=== PATIENT | male | born 1970 | race Caucasian/White ===

== ENCOUNTER 2021-03-18 16:55 | Emergency (ER) | payer BC, SELFPAY ==
[2021-03-18 17:54] VITALS: BP 151/79; RESP 16; TEMP 37.1; O2SAT 98
[2021-03-18 20:01] VITALS: BP 148/87; PULSE 92; RESP 16; O2SAT 97
[2021-03-18 20:08] LABS: Basophils Absolute Auto 0.1 K/mm3 (0.0-0.1); Basophils Percent Auto 0.6 % (0.2-1.2); Eosinophils Absolute Auto 0.2 K/mm3 (0-0.3); Eosinophils Percent Auto 2.1 % (0-4.4); Hematocrit 30.8 % (42.0-52.0); Hemoglobin 10.5 g/dL (14.0-18.0); Immature Granulocyte Absolute 0.17 K/mm3 (0.00-0.031); Immature Granulocyte Percent A 1.6 % (0-0.5); Lymphocytes Absolute Auto 1.29 K/mm3 (0.9-3.2); Mean Corpuscular HGB Conc 34.1 g/dl (32-36); Mean Corpuscular Hemoglobin 28.1 pg (26-34); Mean Corpuscular Volume 82.4 fl (80-100); Mean Platelet Volume 8.8 fl (7.4-10.4); Monocytes Absolute Auto 0.9 K/mm3 (0.1-0.6); Monocytes Percent Auto 8.1 % (2.6-8.5); Neutrophils Absolute Auto 8.1 K/mm3 (1.3-6.7); Neutrophils Percent Auto 75.6 % (45.5-73.1); Platelet Count Result 344 k/mm3 (150-375); Red Blood Count 3.74 M/mm3 (4.6-6.20); Red Cell Distribution Width 12.9 % (11.5-14.5); White Blood Count 10.7 K/mm3 (4.5-10.0)
[2021-03-18 20:55] LABS: Anion Gap 10 mmol/L (8-16); Blood Urea Nitrogen 29 mg/dL (9-20); CRP 7.4 mg/dL (<1.0); Calcium 8.9 mg/dL (8.4-10.2); Carbon Dioxide 24 mmol/L (22-30); Chloride 105 mmol/L (98-107); Estimated CRCL calculation 53 ml/min; Estimated Glomerular Filt Rate 49; Glucose 93 mg/dL (65-110); Potassium 4.2 mmol/L (3.4-5.0); Sodium 139 mmol/L (137-145)
[2021-03-18 21:02] LABS: Erythrocyte Sedimentation Rate > 140 mm/hr (0-20)
--- NOTE | 2021-03-18 22:25 | ED.WOUNDLAC ---
HPI - Wound/Laceration General Chief Complaint: Wound/Laceration Stated Complaint: diabetic wound Time Seen by Provider: 03/18/21 19:58 Source: patient Mode of arrival: ambulatory Limitations: no limitations History of Present Illness HPI narrative: 50-year-old with a history of diabetes, diabetic foot ulcers s/p amputation of all the toes on right foot here with complaints of bleeding fro the right foot , prt states he was cleaning his wounds this afternoon , states a lot of blood came out from a small hole in the great toe area. Pt denies any pus . No H/O of fever or chills . He states he had his toes amputated because of Diabetes , not sure about vascular issues , He had all his Procedures at [place]. Onset (ago): day(s) (1) Extremity Location: Right: foot Related Data Home Medications Medication Instructions Recorded Confirmed lisinopril 20 mg tablet 20 mg PO DAILY 11/12/19 01/14/21 metformin 500 mg tablet,extended 1,500 mg PO DAILY tablet 11/12/19 01/14/21 release 24hr rosuvastatin 40 mg tablet 40 mg PO DAILY 11/12/19 01/14/21 semaglutide 1 mg/dose (2 mg/1.5 1 mg SUBCUT WEEKLY 07/15/20 01/14/21 mL) subcutaneous pen injector insulin lispro 100 unit/mL 10 unit SUB-Q TID ml 01/14/21 01/14/21 subcutaneous pen Allergies Allergy/AdvReac Type Severity Reaction Status Date / Time No Known Allergies Allergy Verified 03/18/21 20:25 Review of Systems Review of Systems: All systems reviewed & are unremarkable except as noted in HPI and below Constitutional: Constitutional: Reports no additional constitutional complaints Eyes: Eyes: Reports no additional eye complaints ENT: Reports system reviewed and no additional complaints, except as documented Cardiovascular: Cardiovascular: Reports no additional cardiovascular complaints Respiratory: Respiratory: Reports no additional respiratory complaints Musculoskeletal: Musculoskeletal: Reports as per HPI Integumentary/Breasts: Skin/Breast: Reports system reviewed and no additional complaints, except [facility]u [facility] Past Medical History Medical History Acute CHF Amputation of toe (~07/2019) Anxiety BMI 28.0-28.9,adult Chronic depression Colon cancer screening Diabetes Diabetic peripheral neuropathy Encounter for prostate cancer screening Encounter for wellness examination in adult Hypogonadism male Male erectile dysfunction, unspecified Osteomyelitis of right foot (~11/24/20) Renal insufficiency (~11/24/20) Family History Family History Mother Diabetes mellitus Family history of cardiovascular disease Cerebrovascular accident Family history of arthritis Family history of kidney disease Family history of congestive heart failure Father Family history of cardiovascular disease Cerebrovascular accident Family history of arthritis Family history of congestive heart failure Grandparent Diabetes mellitus Family history of cardiovascular disease Social History Social History Smoking status: Never smoker Alcohol intake: never Substance use: never Substance use type: does not use Exam Narrative: GENERAL: Well-appearing, well-nourished, and in no acute distress. HEAD: Normocephalic, atraumatic. EYES: PERRLA and EOMI. NECK: Supple. CHEST: Clear to auscultation. No respiratory distress. HEART: Regular rate and rhythm. No murmur heard. Normal peripheral pulses. ABDOMEN: Soft, nontender, nondistended, normal active bowel sounds. EXTREMITIES: Normal range of motion. No edema. Examination of the right foot .all the toes are amputated , skin avulsion about 2 cms . a small puncture wound present at the top with mild bleeding on the dressing. SKIN: Warm, dry, no rash. NEURO: No focal deficits. Alert and oriented x3. PSYCH: Normal mood and affect. Course Course Emergency Course
[2021-03-18 22:36] VITALS: BP 136/78; PULSE 77; RESP 16; O2SAT 99
== END 2021-03-18 23:08 | disposition home or self-care (01) ==
PROVIDERS: Physician Assistant; Emergency Provider Family Medicine; PCP Family Medicine
DX: E11.621 Type 2 diabetes mellitus with foot ulcer (principal); L97.519 Non-pressure chronic ulcer of other part of right foot with unspecified severity; Z79.4 Long term (current) use of insulin; F41.9 Anxiety disorder, unspecified; F32.9 Major depressive disorder, single episode, unspecified; E11.42 Type 2 diabetes mellitus with diabetic polyneuropathy; I50.9 Heart failure, unspecified
CPT/HCPCS: 36415; 80048; 83605; 85025; 85652; 86140; 87040; 99283